=== PATIENT | male | born 1960 | race Caucasian/White ===

== ENCOUNTER 2021-08-16 11:56 | Day surgery (SDC) | payer MEDICAID ==
[2021-08-16] VITALS (9 sets, daily range): BP systolic 119–168; BP diastolic 83–98
[~2021-08-16] VITALS: Ht 195.6 cm; Wt 95.4 kg
[2021-08-16] MEDS ORDERED: ringers solution, lacted 1,000 ML IV SCH ×2 (12:00→17:10)
[2021-08-16] MEDS ORDERED: famotidine 20mg tablet PO ONE (12:00)
[2021-08-16] MEDS ORDERED: SIMV-42 PO (12:41)
[2021-08-16] MEDS ORDERED: LEVE500T PO (12:41)
[2021-08-16] MEDS ORDERED: LISI1TAB51 PO (12:41)
[2021-08-16] MEDS ORDERED: CLON1PAT15 TOP (12:41)
[2021-08-16] MEDS ORDERED: AMLO10TA13 PO (12:41)
[2021-08-16] MEDS ORDERED: CALC500T11 PO (12:41)
[2021-08-16] MEDS ORDERED: METF-1203 PO (12:41)
[2021-08-16] MEDS ORDERED: CLON0.2T PO (13:07)
[2021-08-16 13:20] LABS: BASOPHILS # (AUTO) 0.1 X10'3 (0-0.2); EOSINOPHILS # (AUTO) 0.1 X10'3 (0-0.9); EOSINOPHILS % (AUTO) 1.3 % (0-6); LYMPHOCYTES # (AUTO) 2.2 X10'3 (1.1-4.8); LYMPHOCYTES % (AUTO) 23.2 % (21-51); MEAN CORPUSCULAR HEMOGLOBIN 32.2 PG (27.0-31.0); MEAN CORPUSCULAR HGB CONC 34.3 g/dL (33.0-36.5); MEAN CORPUSCULAR VOLUME 94.1 FL (78-98); MEAN PLATELET VOLUME 9.2 FL (7.4-10.4); MONOCYTES # (AUTO) 0.6 X10'3 (0-0.9); MONOCYTES % (AUTO) 6.8 % (2-12); NEUTROPHILS # (AUTO) 6.3 X10'3 (1.8-7.7); NEUTROPHILS % (AUTO) 67.7 % (42-75); PRE OP HEMATOCRIT 44.4 % (42.0-52.0); PRE OP HEMOGLOBIN 15.2 g/dL (14.0-17.9); PRE OP PLATELET COUNT 240 X10'3 (140-440); RED BLOOD COUNT 4.72 X10'6 (4.70-6.10); RED CELL DISTRIBUTION WIDTH 13.8 % (11.5-14.5)
[2021-08-16 13:34] LABS: ALBUMIN/GLOBULIN RATIO 1.2 (1.1-1.5); ALKALINE PHOSPHATASE 64 IU/L (46-116); BLOOD UREA NITROGEN 17 MG/DL (7-18); BUN/CREATININE RATIO 23.6 (5.4-32.0); CALCIUM 9.1 MG/DL (8.5-10.1); CHLORIDE 106 MMOL/L (99-107); CREATININE 0.72 MG/DL (0.60-1.10); PRE OP ALT 24 U/L (30-65); PRE OP ANION GAP 11 (8-16); PRE OP AST 17 U/L (10-37); PRE OP BILIRUB, TOTAL 0.4 MG/DL (0.0-1.0); PRE OP GLUCOSE 117 MG/DL (70-104); PRE OP POTASSIUM 3.9 MMOL/L (3.4-5.1); PRE OP SODIUM 143 MMOL/L (135-145); TOTAL CARBON DIOXIDE 25.9 MMOL/L (24-32); TOTAL PROTEIN 7.4 G/DL (6.4-8.2); eGFR > 90 ML/MIN
[2021-08-16] MEDS ORDERED: midazolam 1 mg/ML 2ml injection ONE (16:17)
[2021-08-16] MEDS ORDERED: fentaNYL/PF 50MCG/1 ML 2ML syringe ONE ×2 (16:17→16:24)
[2021-08-16] MEDS ORDERED: ketamine 50mg/5ml syringe ONE (16:20)
[2021-08-16] MEDS ORDERED: sugammadex 200mg/2ml injection IV ONE (16:47)
[2021-08-16] MEDS ORDERED: succinylcholine 20mg/ml inj IV ONE (16:52)
[2021-08-16] MEDS ORDERED: rocuronium 10mg/ml inj IV ONE (16:52)
[2021-08-16] MEDS ORDERED: propofol inj 20 ML IV ONE (16:52)
[2021-08-16] MEDS ORDERED: labetalol 20mg/4ml (5mg/ml) syringe IV ONE (16:53)
--- NOTE | 2021-08-16 16:53 | NUR ---
Received from OR via , accompanied by Anesthesiologist DR CHEN and report given by Anesthesiolgist.AWAKENS TO VOICE. VITALS STABLE. JORDAN PAIN. IUE IN A SIMPLE SLING.
[2021-08-16] MEDS ORDERED: morphine 4 MG/ML inj SYRINge IV PRN (17:10)
[2021-08-16] MEDS ORDERED: meperidine/PF 25mg/ml syringe IV PRN ×2 (17:10)
[2021-08-16] MEDS ORDERED: ondansetron/PF 4mg/2ml inj IV PRN (17:10)
[2021-08-16] MEDS ORDERED: morphine 2 MG/ML inj. syringe IV PRN (17:10)
[2021-08-16] MEDS ORDERED: proCHLORperazine 10 MG/2 ml inj IV PRN (17:10)
[2021-08-16] MEDS ORDERED: HYDROcodone/acetaminophen 10/325mg tab PO PRN (17:15)
[2021-08-16] MEDS: meperidine/PF 25mg/ml syringe IV PRN ×2 (17:26→17:34)
--- NOTE | 2021-08-16 18:33 | NUR ---
AWAKE AND ORIENTED. VITALS STABLE. STATES PAIN IMPROVING. HOME WITH A FRIEND AT THIS TIME.
[2021-08-21] MEDS ORDERED: HYDR-3972 PO (13:08)
== END 2021-08-16 18:33 | disposition home or self-care (01) ==
LOC: OR 11:56
PROVIDERS: ATTEND Orthopaedic Surgery
DX: M24.412 Recurrent dislocation, left shoulder (principal); M75.122 Complete rotator cuff tear or rupture of left shoulder, not specified as traumatic; S42.292K Other displaced fracture of upper end of left humerus, subsequent encounter for fracture with nonunion; G40.409 Other generalized epilepsy and epileptic syndromes, not intractable, without status epilepticus; E10.9 Type 1 diabetes mellitus without complications; I10 Essential (primary) hypertension; E78.5 Hyperlipidemia, unspecified; F17.210 Nicotine dependence, cigarettes, uncomplicated; Z88.5 Allergy status to narcotic agent; Z98.890 Other specified postprocedural states; Z79.899 Other long term (current) drug therapy; Z79.84 Long term (current) use of oral hypoglycemic drugs; X58.XXXD Exposure to other specified factors, subsequent encounter; Z20.822 Contact with and (suspected) exposure to COVID-19
CPT/HCPCS: 23655; 36415; 73020; 80053; 82948; 85025; 87635; 93005; C9399; C9803; J0330; J2175; J2250; J2704; J3010; Z7506; Z7512; A4565; A4618; J3490; J7120

== ENCOUNTER 2021-08-22 06:17 | Inpatient (IN) | payer MEDICAID ==
[2021-08-22] VITALS (13 sets, daily range): BP systolic 121–149; BP diastolic 82–104
[~2021-08-22] VITALS: Ht 195.6 cm; Wt 93.4 kg
[~2021-08-22 06:17] MED LIST: AMLO10TA13 PO; CALC500T11 PO; CLON0.2T PO; HYDR-3972 PO; LEVE500T PO; LISI1TAB51 PO; METF-1203 PO; SIMV-42 PO; cefazolin/dext.iso 2gm/50ml IV ONE; famotidine 20mg tablet PO ONE; mupirocin 2% nasal ointment 1gm UD NS ONE; ringers solution, lacted 1,000 ML IV SCH; tranexamic acid 650mg tablet PO ONE; vancomycin 1,500 MG in NS 300ml IV soln IV ONE
[2021-08-22] MEDS ORDERED: ROPIVAcaine 0.5% (5mg/ml) 30ml vial ONE ×2 (09:32→09:48)
[2021-08-22] MEDS ORDERED: ketorolac trometh. 30mg/ml inj. ONE (09:32)
[2021-08-22] MEDS ORDERED: MIDAZolam 1 MG/ML 5ML VIAL ONE (09:46)
[2021-08-22] MEDS ORDERED: fentaNYL/PF 50MCG/1 ML 2ML syringe ONE (09:46)
[2021-08-22] MEDS ORDERED: propofol inj 20 ML IV ONE (09:48)
[2021-08-22] MEDS ORDERED: LIDOcaine 2% (20mg/ml) 5ml vial ONE (09:48)
[2021-08-22] MEDS ORDERED: morphine 4 MG/ML inj SYRINge IV PRN (11:05)
[2021-08-22] MEDS ORDERED: morphine 2 MG/ML inj. syringe IV PRN (11:05)
[2021-08-22] MEDS ORDERED: meperidine/PF 25mg/ml syringe IV PRN ×3 (11:05)
[2021-08-22] MEDS ORDERED: ondansetron/PF 4mg/2ml inj IV PRN ×2 (11:05→12:40)
[2021-08-22] MEDS ORDERED: ringers solution, lacted 1,000 ML IV SCH (11:05)
[2021-08-22] MEDS ORDERED: ROPIVAcaine 0.2% (10 MG/5 ML) BOLUS INJECTION INTERSCALE PRN (11:05)
[2021-08-22] MEDS ORDERED: proCHLORperazine 10 MG/2 ml inj IV PRN (11:05)
[2021-08-22] MEDS ORDERED: ROPIVAcaine 0.2%/PF PUMP/bolus 545 ML INTERSCALE SCH (11:05)
--- NOTE | 2021-08-22 12:19 | NUR ---
Received from OR via BED, LEFT SHOULDER DSG CDI, SHOULDER AND POWDER PACK IN PLACE, PT AWAKE DENIES PAIN. accompanied by Anesthesiologist MARION and report given by Anesthesiologist AND ROAD PASSENGER FIRER. Addendum: 08/22/21 at 1234 by Swapna Evans RN Amended: Links added.
[2021-08-22] MEDS ORDERED: bisacodyl 10mg suppository rectal RC PRN (12:40)
[2021-08-22] MEDS ORDERED: HYDROmorphone 1 mg/ml syringe IV PRN (12:40)
[2021-08-22] MEDS ORDERED: diphenhydrAMINE 25mg capsule PO PRN ×2 (12:40)
[2021-08-22] MEDS ORDERED: calcium carbonate 500mg chew tablet PO PRN (12:40)
[2021-08-22] MEDS ORDERED: magnesium hydroxide 30ml (MOM) UD suspension PO PRN (12:40)
[2021-08-22] MEDS ORDERED: potassium cl 20mEq in 1/2 NS 1,000 ML IV SCH (12:40)
[2021-08-22] MEDS ORDERED: acetaminophen 325mg tablet PO PRN (12:40)
[2021-08-22] MEDS ORDERED: HYDROmorphone inj. 0.5 MG/0.5 ML DISP.SYRIN IV PRN (12:40)
[2021-08-22] MEDS ORDERED: oxyCODONE IR 5mg (immed. release) tablet PO PRN ×2 (12:40)
--- NOTE | 2021-08-22 13:29 | NUR ---
Report called to receiving nurse MYRON ROME. Transferred via BED, LEFT SHOULDER DSG CDI, WRAP/POWDER PACK IN PLACE, DENIES PAIN. Belongings SENT WITH PT TO ROOM 364A. BLL, CALL LIGHT IN REACH, SIDE RAILS UP X2. RECIEVING RN NOTIFED OF PTS ARRIVAL. Addendum: 08/22/21 at 1359 by Swapna Evans RN Amended: Links added.
[2021-08-22] MEDS ORDERED: acetaminophen 325mg tablet PO SCH (14:00)
[2021-08-22] MEDS ORDERED: ceFAZolin/D5W- 1GM premix 50 ML IV SCH (16:00)
--- NOTE | 2021-08-22 18:00 | NUR ---
pt discharged in stable condition. iv removed, tip intact, no complications. Belongings sent with pt. Pt educated on post op follow up and instructions. Pt discharged in private vehicle to home
[2021-08-22] MEDS ORDERED: cloNIDine 0.1 mg tablet PO SCH (20:00)
[2021-08-22] MEDS ORDERED: levetiracetam 250mg tablet PO SCH (20:00)
[2021-08-22] MEDS ORDERED: vancomycin/NS 1 GM ADD-VANTAGE 250 ML IV SCH (20:00)
[2021-08-22] MEDS ORDERED: sennosides 8.6mg tablet PO SCH (21:00)
[2021-08-22] MEDS ORDERED: atorvastatin 10mg tablet PO SCH (21:00)
[2021-08-23] MEDS ORDERED: amLODIPine 5mg tablet PO SCH (08:00)
[2021-08-23] MEDS ORDERED: metFORMIN 500mg tablet PO SCH (08:00)
[2021-08-23] MEDS ORDERED: HYDROchlorothiazide 12.5mg capsule PO SCH (08:00)
[2021-08-23] MEDS ORDERED: lisinopril 20mg tablet PO SCH (08:00)
[2021-08-23] MEDS ORDERED: aspirin 325mg tablet PO SCH (08:30)
[2021-08-23] MEDS ORDERED: celeCOXIB 100mg capsule PO SCH (20:00)
[2021-08-24] MEDS ORDERED: acetaminophen 325mg tablet PO PRN (12:40)
== END 2021-08-22 18:01 | disposition home or self-care (01) | DRG 322 ==
LOC: PAS IN 06:17 → SUR 3N 13:50
PROVIDERS: ADMIT Orthopaedic Surgery; ATTEND Orthopaedic Surgery
PROC: 0LS40ZZ Reposition Left Upper Arm Tendon, Open Approach (ICD-10-PCS; 2021-08-22)
PROC: 3E0T3BZ Introduction of Anesthetic Agent into Peripheral Nerves and Plexi, Percutaneous Approach (ICD-10-PCS; 2021-08-22)
PROC: 3E0T33Z Introduction of Anti-inflammatory into Peripheral Nerves and Plexi, Percutaneous Approach (ICD-10-PCS; 2021-08-22)
PROC: 0RRK00Z Replacement of Left Shoulder Joint with Reverse Ball and Socket Synthetic Substitute, Open Approach (ICD-10-PCS; principal; 2021-08-22 09:42)
DX: M75.122 Complete rotator cuff tear or rupture of left shoulder, not specified as traumatic (principal); M24.412 Recurrent dislocation, left shoulder; M65.812 Other synovitis and tenosynovitis, left shoulder; S42.292K Other displaced fracture of upper end of left humerus, subsequent encounter for fracture with nonunion
CPT/HCPCS: 73020; 82948; 87081; G0378; J0690; J1885; J2001; J2250; J2704; J2795; J3010; J3370; J3480; J7040; J7120